=== PATIENT | female | born 1995 | race Two or more races ===

== ENCOUNTER 2025-06-18 17:24 | Emergency (ER) | payer OTHER ==
[~2025-06-18] VITALS: Ht 170.2 cm; Wt 81.6 kg
[2025-06-18 18:18] LABS: PLATELET COUNT (AUTO) 298 K/uL (150-450); RED BLOOD CELL COUNT(AUTO) 4.12 MIL/uL (4.0-5.2); RED CELL DISTRIBUTION WIDTH 12.2 % (11.5-15.0); WHITE BLOOD COUNT (AUTO) 9.5 K/uL (4.3-11.0)
[2025-06-18] MEDS: IV NS 0.9% 1,000 ML BAG IV ONE ×2 (18:20→20:34)
[2025-06-18 18:28] LABS: CALCIUM, SERUM 8.0 mg/dL (8.5-10.1); CREATININE 0.8 mg/dL (0.6-1.3); SODIUM SERUM 140.0 mmol/L (136-145); UREA NITROGEN, BLOOD 11.0 mg/dL (7-18)
[2025-06-18] MEDS ORDERED: MECLIZINE HCL 25 MG TABLET ONE (18:48)
[2025-06-18] MEDS: MECLIZINE HCL 12.5 MG TABLET PO ONE (18:52)
[2025-06-18] MEDS ORDERED: POTASSIUM CHLORIDE 20 MEQ TAB.PRT.SR PO ONE ×2 (19:08→19:10)
[2025-06-18] MEDS: POTASSIUM CHLORIDE 20 MEQ TAB.PRT.SR PO ONE (19:17)
[2025-06-18 20:21] LABS: APPEARANCE,URINE CLEAR (CLEAR); BLOOD, URINE TRACE-INTA Ery/uL (NEGATIVE); LEUKOCYTE ESTERASE ,URINE NEGATIVE (NEGATIVE); NITRITE, URINE NEGATIVE (NEGATIVE); UGLUCOSE NEGATIVE (NEGATIVE)
[2025-06-18 20:23] LABS: PREGNANCY TEST URINE QUAL NEGATIVE (NEGATIVE)
[2025-06-18 20:30] LABS: AMPHETAMINE, URINE NEGATIVE (NEGATIVE); BARBITURATE, URINE NEGATIVE (NEGATIVE); BENZODIAZEPINE, URINE NEGATIVE (NEGATIVE); CANNABINOID, URINE NEGATIVE (NEGATIVE); COCCAINE, URINE NEGATIVE (NEGATIVE); OPIATE, URINE NEGATIVE (NEGATIVE)
[2025-06-18 20:34] LABS: ADD URINE CULTURE YES; SQUAMOUS EPITHELIAL CELL,UR Moderate /HPF (None Seen)
[2025-06-18] MEDS ORDERED: ONDA4TAB5 PO (21:43)
[2025-06-18 22:05] VITALS: BP 120/74; TEMP 98.5; O2SAT 96
== END 2025-06-18 22:12 | disposition home or self-care (01) ==
LOC: ER 17:25
DX: E87.6 Hypokalemia (principal); F45.8 Other somatoform disorders; F32.A Depression, unspecified; R51.9 Headache, unspecified; Z79.899 Other long term (current) drug therapy
CPT/HCPCS: 99285; 96360; 70450; 71045; 96361; 93005; 85025; 80048; 87077; 87086; 84703; 87186; 81001; 36415; 80307; J8597; J7030 ×2